=== PATIENT | male | born 1955 | race Caucasian/White ===

== ENCOUNTER 2016-09-18 14:27 | Observation (INO) | payer OTHER, MEDICARE ==
[~2016-09-18] VITALS: Ht 182.9 cm; Wt 85.0 kg
[2016-09-18] VITALS (7 sets, daily range): BP systolic 122–189; BP diastolic 74–87; PULSE 54–75; RESP 18–20; TEMP 97.6–97.9; O2SAT 97–100
[~2016-09-18 14:27] MED LIST: ASPI81; ATEN1TAB73; GLUCTAB; LANO0.2510; MS C15TA7; MS C30TA5; ZOCO40TA
[2016-09-18] MEDS ORDERED: SODIUM CHLORIDE 0.9% FLUSH 5 ML FLUSH IVF PRN ×2 (15:30→18:30)
--- NOTE | 2016-09-18 15:31 | PD ---
HPI Chief Complaint: Chest Pain Time Seen by Provider: 15:30 Travel History International Travel<30 days: No Contact w/Intl Traveler<30days: No Traveled to known affect area: No History of Present Illness HPI 61-year-old male with a history of hypertension, hyperlipidemia, CAD, CABG 5, chronic low back pain presents to the emergency department for evaluation of left anterior chest pain. The patient states that he has had left anterior chest pain for the past 5 weeks. States that it has been worsening and becoming more constant. States that the pain is aggravated with exertion. Denies any alleviating factors. He does state that he has some shortness of breath and diaphoresis when the pain is at its worst. He also endorses some epigastric pain and increased belching over the past 5 weeks, has never had an endoscopy. Patient states that he has had 2 heart attacks, his first heart attack was in 2010 and resulted in his CABG and his second heart attack was in June 2016 where he had a catheterization and 2 stents placed. Patient states that his most recent cardiac catheterization and hospitalizations have been over at [facility] which is where he lives. States that he came to our hospital today because the last time he was seen at [facility] he did not think he should've gone home. The patient is also reporting a history of severe allergic reactions to chemicals and states that he wears oxygen and a mask to help with these symptoms, states that he does not have to wear the oxygen or mask when he is at home. He admits to smoking cigarettes for about 40+ years. Denies any fever, chills, nausea, vomiting, abdominal pain, diarrhea constipation. PFSH Past Medical History Cardiovascular Problems: Yes High Cholesterol: Yes Hypertension: Yes Respiratory: Yes Social History Tobacco Use: Yes Allergies-Medications (Allergen,Severity, Reaction): Coded Allergies: Aspirin (Verified Allergy, Severe, 09/18/16) Methylparaben (Verified Allergy, Mild, 03/11/07) Reported Meds & Prescriptions Reported Meds & Active Scripts Active Reported Nitrostat SL (Nitroglycerin) 0.4 Mg Subl 0.4 Mg SL DIRECTED PRN 1 tablet under the tongue as needed for chest pain. Repeat every 5 minutes for a total of 3 DOSES or call 911 if NO relief. Metoprolol Tartrate 25 Mg Tab 25 Mg PO BID Lisinopril 2.5 Mg Tab 2.5 Mg PO DAILY Lactobacillus Acidophilus 1 Tab Tab 1 Tab PO DAILY Dilaudid (Hydromorphone HCl) 8 Mg Tab 8 Mg PO Q4HR PRN Glipizide 5 Mg Tab 5 Mg PO DAILY Take 30 minutes before a meal Clopidogrel (Clopidogrel Bisulfate) 75 Mg Tab 75 Mg PO DAILY Atenolol 25 Mg Tab 12.5 Mg PO DAILY IN THE PM Atenolol 25 Mg Tab 25 Mg PO DAILY IN THE AM Review of Systems Except as stated in HPI: all other systems reviewed are Neg Physical Exam Narrative GENERAL: Well-nourished and well-developed pleasant male patient in no acute distress. SKIN: Warm and dry. HEAD: Normocephalic and atraumatic. EYES: No injection, drainage, or hyphema noted. PERRLA. EOMI. ENT: No nasal drainage noted. Oropharynx is clear. NECK: Supple and the trachea is midline. CARDIOVASCULAR: Regular rate and rhythm. RESPIRATORY: Breath sounds are equal bilaterally with no accessory muscle use, wheezing, rhonchi, or crackles. GASTROINTESTINAL: Abdomen is soft, non-tender, and nondistended. MUSCULOSKELETAL: No obvious deformities, swelling, cyanosis, or ecchymosis is present throughout the upper and lower extremities. Patient has full range of motion without any signs of neurovascular compromise. NEUROLOGICAL: Awake, alert, and oriented. Normal speech and gait. Cranial nerves are grossly intact. Data Data Last Documented VS Vital Signs Date Time Temp Pulse Resp B/P Pulse Ox O2 Delivery O2 Flow Rate FiO2 09/18/16 17:04 57 18 144/79 100 Nasal Cannula 5 09/18/16 14:30 97.9 Orders Electrocardiogram (09/18/16 ) B-Type Natriuretic Peptide (09/18/16 15:24) Ckmb (Isoenzyme) Profile (09/18/16 15:24) Complete Blood Count With Diff (09/18/16 15:24) Comprehensive Metabolic Panel (09/18/16 15:24) Magnesium (Mg) (09/18/16 15:24) Prothrombin Time / Inr (Pt) (09/18/16 15:24) Act Partial Throm Time (Ptt) (09/18/16 15:24) Troponin I (09/18/16 15:24) Chest, Single Ap (09/18/16 15:24) Ecg Monitoring (09/18/16 15:24) Iv Access Insert/Monitor (09/18/16 15:24) Oximetry (09/18/16 15:24) Oxygen Administration (09/18/16 15:24) Sodium Chloride 0.9% Flush (Ns Flush) (09/18/16 15:30) Aspirin (Aspirin) (09/18/16 17:00) Admit Order (Ed Use Only) (09/18/16 18:23) Labs Laboratory Tests Test 09/18/16 15:44 White Blood Count 12.7 TH/MM3 Red Blood Count 4.67 MIL/MM3 Hemoglobin 13.8 GM/DL Hematocrit 40.0 % Mean Corpuscular Volume 85.7 FL Mean Corpuscular Hemoglobin 29.6 PG Mean Corpuscular Hemoglobin 34.6 % Concent Red Cell Distribution Width 14.7 % Platelet Count 159 TH/MM3 Mean Platelet Volume 10.4 FL Neutrophils (%) (Auto) 80.4 % Lymphocytes (%) (Auto) 13.4 % Monocytes (%) (Auto) 5.4 % Eosinophils (%) (Auto) 0.4 % Basophils (%) (Auto) 0.4 % Neutrophils # (Auto) 10.2 TH/MM3 Lymphocytes # (Auto) 1.7 TH/MM3 Monocytes # (Auto) 0.7 TH/MM3 Eosinophils # (Auto) 0.1 TH/MM3 Basophils # (Auto) 0.1 TH/MM3 CBC Comment DIFF FINAL Differential Comment Prothrombin Time 10.6 SEC Prothromb Time International 1.0 RATIO Ratio Activated Partial 23.8 SEC Thromboplast Time Sodium Level 139 MEQ/L Potassium Level 5.1 MEQ/L Chloride Level 104 MEQ/L Carbon Dioxide Level 32.9 MEQ/L Anion Gap 2 MEQ/L Blood Urea Nitrogen 10 MG/DL Creatinine 1.26 MG/DL Estimat Glomerular Filtration 58 ML/MIN Rate Random Glucose 152 MG/DL Calcium Level 10.3 MG/DL Magnesium Level 2.1 MG/DL Total Bilirubin 0.5 MG/DL Aspartate Amino Transf 17 U/L (AST/SGOT) Alanine Aminotransferase 39 U/L (ALT/SGPT) Alkaline Phosphatase 65 U/L Total Creatine Kinase 48 U/L Troponin I LESS THAN 0.02 NG/ML B-Type Natriuretic Peptide 83 PG/ML Total Protein 7.8 GM/DL Albumin 4.1 GM/DL MDM Medical Decision Making Medical Screen Exam Complete: Yes Emergency Medical Condition: Yes Differential Diagnosis Angina versus ACS versus pleurisy versus gastritis versus reflux Narrative Course 61-year-old male presents to the emergency department for evaluation of left- sided chest pain, epigastric pain, shortness of breath for 5 weeks. Patient is afebrile, vital signs are stable. Physical examination is unremarkable. Patient not administered aspirin because he reports he is allergic. He did take Plavix this morning. Labs been drawn and sent. Chest x-ray shows minimal blunting of the left costophrenic sulcus indicating small effusion versus scarring. No acute cardiopulmonary disease identified. CBC shows a minimally elevated white count of 12.7, otherwise unremarkable. CMP is unremarkable for any acute abnormalities. Troponin is less than 0.02. BNP is 83. Coags are unremarkable. Patient has remained stable and without complaint while here in the emergency department. Will admit patient to chest pain center for repeat cardiac enzymes and EKGs. I discussed the case with my attending physician Dr. Bower who is aware of the patients history, physical examination findings, and treatment plan. Diagnosis Primary Impression: Chest pain Qualified Code: R07.9 - Chest pain, unspecified type Admitting Information Admitting Physician Requests: Observation Sadie Marina Sep 18, 2016 15:30
[2016-09-18] MEDS ORDERED: DILA8TAB4 PO (15:36)
[2016-09-18] MEDS ORDERED: METO25TA3 PO (15:36)
[2016-09-18] MEDS ORDERED: NITR0.4S SL (15:36)
[2016-09-18] MEDS ORDERED: LISI2.5T3 PO (15:36)
[2016-09-18] MEDS ORDERED: CLOP75TA PO (15:36)
[2016-09-18] MEDS ORDERED: GLIP5TAB8 PO (15:36)
[2016-09-18] MEDS ORDERED: LACTTAB8 PO (15:36)
[2016-09-18] MEDS ORDERED: ATEN25TA PO ×2 (15:36)
--- NOTE | 2016-09-18 16:27 | RADRPT ---
EXAM DATE/TIME: 09/18/2016 15:38 [facility] COMPARISON: No previous studies available for comparison. INDICATIONS : Chest pain. MEDICAL HISTORY : Congestive heart failure. SURGICAL HISTORY : CABG. ENCOUNTER: Initial ACUITY: 2 days PAIN SCORE: 5/10 LOCATION: Bilateral chest FINDINGS: Single AP view of the chest. Median sternotomy wires. The lungs are clear. Cardiomediastinal silhouet te within normal limits. No evidence of pneumothorax. Mild blunting left costophrenic sulcus indicati ng small pleural effusion or scarring. CONCLUSION: 1. Minimal blunting of the left costophrenic sulcus indicating small effusion versus scarring. 2. No acute cardiopulmonary disease identified. Neno Gutiérrez MD on September 18, 2016 at 16:23 Board Certified Radiologist. This report was verified electronically.
[2016-09-18 16:29] LABS: APTT (PATIENT) 23.8 SEC (24.3-30.1); PROTHROMBIN TIME - PATIENT 10.6 SEC (9.8-11.6)
[2016-09-18 16:48] LABS: ALT (GPT) 39 U/L (12-78); ANION GAP 2 MEQ/L (5-15); AST (GOT) 17 U/L (15-37); BICARBONATE 32.9 MEQ/L (21.0-32.0); BLOOD UREA NITROGEN 10 MG/DL (7-18); CHLORIDE 104 MEQ/L (98-107); GLOMERULAR FILTRATION RATE 58 ML/MIN (>89); MAGNESIUM 2.1 MG/DL (1.5-2.5); POTASSIUM 5.1 MEQ/L (3.5-5.1); SODIUM (NA) 139 MEQ/L (136-145)
[2016-09-18 16:51] LABS: ALKALINE PHOSPHATASE 65 U/L (45-117); TOTAL BILIRUBIN ADULT 0.5 MG/DL (0.2-1.0)
[2016-09-18] MEDS ORDERED: ASPIRIN 325 MG TAB PO ONE ×2 (17:00→19:15)
[2016-09-18 17:23] LABS: CREATINE KINASE 48 U/L (39-308)
[2016-09-18 17:36] LABS: AUTOMATED NEUTROPHIL # 10.2 TH/MM3 (1.8-7.7); BASOPHIL # 0.1 TH/MM3 (0-0.2); BASOPHIL % 0.4 % (0.0-2.0); EOSINOPHIL # 0.1 TH/MM3 (0-0.4); EOSINOPHIL % 0.4 % (0.0-4.0); HEMO FLAGS DIFF FINAL; LYMPH % 13.4 % (9.0-44.0); LYMPHOCYTE # 1.7 TH/MM3 (1.0-4.8); MEAN CELL VOLUME 85.7 FL (80.0-100.0); MEAN CORPUSCULAR HEMOGLOBIN 29.6 PG (27.0-34.0); MEAN CORPUSCULAR HGB CONC 34.6 % (32.0-36.0); MONO % 5.4 % (0.0-8.0); NEUT % 80.4 % (16.0-70.0); PLATELET COUNT 159 TH/MM3 (150-450); RED BLOOD COUNT 4.67 MIL/MM3 (4.50-5.90); RED CELL DISTRIBUTION WIDTH 14.7 % (11.6-17.2); WHITE BLOOD COUNT 12.7 TH/MM3 (4.0-11.0)
[2016-09-18] MEDS ORDERED: ONDANSETRON HCL 4 MG/2 ML VIAL IV PRN (18:30)
[2016-09-18] MEDS ORDERED: NITROGLYCERIN 0.4 MG SL 25 TABS/BTL SL PRN (18:30)
[2016-09-18] MEDS ORDERED: ACETAMINOPHEN 500 MG CPLT PO PRN (18:30)
[2016-09-18] MEDS ORDERED: DEXTROSE 50% IN WATER 50 ML VIAL(D50) IV PUSH PRN (19:30)
[2016-09-18] MEDS ORDERED: RESP: ALBUTEROL 2.5 MG/3 ML NEB (PRN) NEB (19:30)
[2016-09-18] MEDS ORDERED: GLUCAGON 1 MG/ML VIAL OTHER PRN (19:30)
[2016-09-18 19:51] LABS: CREATINE KINASE 39 U/L (39-308)
[2016-09-18] MEDS ORDERED: ATENOLOL 25 MG TAB PO SCH (21:00)
[2016-09-18] MEDS: INSULIN ASPART SUPPLEMENTAL SCALE SQ SCH (21:00)
[2016-09-18] MEDS: SODIUM CHLORIDE 0.9% FLUSH 5 ML FLUSH IVF SCH (21:15)
[2016-09-18] MEDS: PANTOPRAZOLE SOD 40 MG DELAYED RELEASE TAB PO SCH (21:16)
[2016-09-18] MEDS: HYDROmorphone HCL 4 MG TAB PO PRN (21:18)
[2016-09-18 22:59] LABS: CREATINE KINASE 43 U/L (39-308)
[2016-09-19] VITALS (7 sets, daily range): BP systolic 127–143; BP diastolic 71–73; PULSE 50–65; RESP 18–20; TEMP 96.5–98.3; O2SAT 98–100
[2016-09-19] MEDS: INSULIN ASPART SUPPLEMENTAL SCALE SQ SCH ×2 (06:11→11:00)
[2016-09-19] MEDS ORDERED: ATENOLOL 25 MG TAB PO SCH (09:00)
[2016-09-19] MEDS: SODIUM CHLORIDE 0.9% FLUSH 5 ML FLUSH IVF SCH (09:00)
[2016-09-19] MEDS ORDERED: CLOPIDOGREL 75 MG TAB PO SCH (09:00)
[2016-09-19] MEDS: PANTOPRAZOLE SOD 40 MG DELAYED RELEASE TAB PO SCH (10:15)
--- NOTE | 2016-09-19 11:45 | EKG ---
Date Performed: 09/18/2016 Time Performed: 15:25:45 PTAGE: 61 years EKG: Sinus rhythm POOR PRECORDIAL R-WAVE PROGRESSION BORDERLINE ECG PREVIOUS TRACING : 03/11/2007 11.41 DOCTOR: Rayo Gamez Interpretating Date/Time 09/19/2016 11:43:54
--- NOTE | 2016-09-19 11:57 | EKG ---
Date Performed: 09/18/2016 Time Performed: 18:37:30 PTAGE: 61 years EKG: SINUS BRADYCARDIA POOR PRECORDIAL R-WAVE PROGRESSION BORDERLINE ECG PREVIOUS TRACING : 09/18/2016 15.25 DOCTOR: Rayo Gamez Interpretating Date/Time 09/19/2016 11:55:57
--- NOTE | 2016-09-19 11:59 | EKG ---
Date Performed: 09/18/2016 Time Performed: 22:18:43 PTAGE: 61 years EKG: Sinus rhythm INCOMPLETE RIGHT BUNDLE BRANCH BLOCK POOR PRECORDIAL R-WAVE PROGRESSION BORDERLINE ECG PREVIOUS TRACING : 09/18/2016 18.37 DOCTOR: Rayo Gamez Interpretating Date/Time 09/19/2016 11:58:32
[2016-09-19 12:18] LABS: AMPHETAMINE, URINE NEG (NEG); BARBITURATES, URINE NEG (NEG); COCAINE, URINE NEG (NEG)
[2016-09-19] MEDS: HYDROmorphone HCL 4 MG TAB PO PRN (12:44)
[2016-09-19] MEDS ORDERED: PROT40TA PO (16:26)
[2016-09-19] MEDS ORDERED: METF500T PO (16:26)
--- NOTE | 2016-09-19 16:28 | HHI.DCPOC ---
Discharge Care Plan Diagnosis: (1) Chest pain (2) CAD (coronary artery disease) (3) Hx of CABG (4) H/O heart artery stent (5) Tobacco abuse (6) Hypertension Goals to Promote Your Health * To prevent worsening of your condition and complications * To maintain your health at the optimal level Directions to Meet Your Goals Take your medications as prescribed Follow your dietary instruction Follow activity as directed Keep your appointments as scheduled Take your immunizations and boosters as scheduled If your symptoms worsen call your PCP, if no PCP go to Urgent Care Center or Emergency Room Smoking is Dangerous to Your Health. Avoid second hand smoke Call the 24-hour hour crisis hotline for domestic abuse at René Gordon Sep 19, 2016 16:28
[2016-09-19] MEDS ORDERED: IOHEXOL 350 MG/ML 10 ML VIAL (for RAD DIAG) IV ONE (16:49)
--- NOTE | 2016-09-19 17:23 | RADRPT ---
EXAM DATE/TIME: 09/19/2016 16:41 [facility] COMPARISON: No previous studies available for comparison. INDICATIONS : Right sided chest pain with shorttness of breath. Elevated D-Dimer. IV CONTRAST: 65 cc Omnipaque 350 (iohexol) IV RADIATION DOSE: 23.43 CTDIvol (mGy) MEDICAL HISTORY : Cardiovascular disease. Hypertension. SURGICAL HISTORY : CABG ENCOUNTER: Initial ACUITY: 1 month PAIN SCALE: 4/10 LOCATION: Right chest TECHNIQUE: Volumetric scanning of the chest was performed using a pulmonary embolism protocol MIP images were re constructed. Using automated exposure control and adjustment of the mA and/or kV according to patien t size, radiation dose was kept as low as reasonably achievable to obtain optimal diagnostic quality images. FINDINGS: No filling defects identified to suggest pulmonary embolic disease. There is chronic left basilar ple ural thickening and calcification with some dependent atelectasis. Moderate coronary calcifications, status post CABG. No acute findings in the upper abdomen. CONCLUSION: 1. Negative for pulmonary embolic disease. Chronic left basilar pleural thickening and calcification. Tristin Wagner MD on September 19, 2016 at 17:19 Board Certified Radiologist. This report was verified electronically.
[2016-09-20 10:07] LABS: HEMOGLOBIN Ao 84.6 %; HEMOGLOBIN LA1C 1.7 %; HEMOGLOBIN P3 3.4 %
--- NOTE | 2016-09-22 08:40 | MH ---
cc: LETICIA GAMEZ DATE OF ADMISSION: 09/18/2016 DATE OF : 1955 CHIEF COMPLAINT Chest pain. HISTORY OF PRESENT ILLNESS This is a 61-year-old patient with known coronary artery disease, hypertension, hyperlipidemia, two cardiac stents placed in June of 2016 and CABG x5 in 2000, presents to the emergency room with left anterior chest discomfort. Onset was approximately five weeks ago after he was discharged from [facility] for evaluation of chest pain and abdominal discomfort. States he was discharged prematurely and for the past five weeks he has been recovering on his own by living on papayas, mash potatoes, Boost and cigarettes. States over the past five weeks he developed left anterior chest pressure that is severe rated a "12/10" that radiates to both arms. Occasionally he will also develop sharp pain. This pain has been constant for the past five weeks. Bending over makes the pain worse. No known relieving factors although sometimes he takes Tums and this helps with the gas. He believes that his stomach and chest pain are related. He has never had an endoscopy. He did have a colonoscopy at age 49 which was unremarkable and he has not followed with a GI physician since. He does have a primary care physician, Dr. Lockhart. He has not followed up with Dr. Lockhart since his discharge, and his new phlebotomy specialist will be Dr. Worrell and he has not seen him since discharge. PAST MEDICAL HISTORY 1. Hypertension. 2. Hyperlipidemia. 3. Gallstones. 4. Coronary artery disease. 5. Chronic neck and back pain. 6. Arthritis. PAST SURGICAL HISTORY 1. He had two stents placed in June of 2016. 2. CABG x5 in 2000. The patient states his surgery was completed here at [place]. SOCIAL HISTORY He is retired, is a . He smokes one pack of cigarettes daily. Denies any alcohol or illicit drug use. Does have diabetes, hypertension and hyperlipidemia. He has not seen Dr. Worrell recently and his past cardiac catheterization he believes was July 05, 2016 and two stents were placed at that time. ALLERGIES HE IS ALLERGIC TO ASPIRIN AND METHYLPARABEN. ALSO REPORTS "MULTIPLE CHEMICAL ALLERGIES". MEDICATIONS Medications were reviewed with patient's med list and include - 1. Dilaudid 8 mg q.4 hours p.r.n. The patient states he takes this on a regular basis. 2. Glipizide 5 mg daily. The patient states at times he takes a quarter or a [id number] as he is known to "bottom out". 3. Plavix 75 mg as ordered. He is taking a xjwj-[id number] in the morning and a pbky-c-duhytr in the evening. 4. He is no longer taking lisinopril 2.5 mg daily, although this is ordered and on his most recent discharge summary from [facility]. 5. In regards to his atenolol, it is ordered 25 mg q.a.m. and atenolol 12.5 mg q.p.m., although he states he checks his heart rate and uses atenolol on a p.r.n. basis and will use Metoprolol 25 mg when his heart rate gets above 100. REVIEW OF SYSTEMS States he has been weak and fatigued and just has never improved since his discharge five weeks ago from [facility]. No known fevers or chills. HEENT: No headache. No dysphagia. CARDIOVASCULAR: As stated above. Has chronic lower leg pain. RESPIRATORY: Reports shortness of breath on occasion, although states it is difficult for him to know if this shortness of breath is from his multiple allergies or chest pain or his abdominal discomfort. He has no cough, upper respiratory infection, wheeze. The patient has O2 tank that is his personal O2 tank at bedside and states he uses O2 at 5 liters as needed which he administers orally due to severe chemical allergies. He also has to wear a mask while in the hospital and/or grocery store with his oxygen. ABDOMEN: States he is only able to eat a bland diet which consists of melon, mash potatoes and an Ensure. Has constipation and endorse using a Fleet enema every three days. Last bowel movement was this morning. No blood or dark stool. GENITOURINARY: No dysuria or hematuria. EXTREMITIES: No lower leg edema. Reports chronic bilateral severe neuropathy. MUSCULOSKELETAL: No change in ROM. NEUROLOGIC: No difficulty with balance, motory or sensory deficits, change in memory. PHYSICAL EXAMINATION VITAL SIGNS: Temperature 97.9, pulse 75, respiratory 20, and blood pressure 189/87, most recent blood pressure 130/75, and he is 97% on O2 at 2 liters. The patient does titrate his oxygen up to 5 liters although this is not for shortness of breath. He states it is for his throat. GENERAL: He is alert, well-nourished, well-developed, male who is in no acute distress. HEENT: Head normocephalic, atraumatic. Eyes: Sclerae are clear. Pupils are equal and round. Conjunctivae are without injection. ENT: Mucous membranes are pink and moist. NECK: Neck is supple. Trachea is midline. There are no masses. CARDIOVASCULAR: Regular rate and rhythm without murmur, rub or gallop. No JVD. S1, S2. No S3 or S4. RESPIRATORY: Clear lungs throughout bilaterally with no crackles, wheeze or rhonchi. He is nonlabored. Speaking in full sentences. Able to carry on a conversation. There is no use of accessory muscle use. Symmetrical chest rise. Throughout assessment he will place the nasal canula on his head or in his mouth frequently. ABDOMEN: Abdomen is soft, nontender, nondistended. No masses. Positive bowel tones. EXTREMITIES: Pulses +1 x4. No dependent edema. MUSCULOSKELETAL: Normal tone x4. Nontender. No obvious deformities. NEUROLOGIC: CN II through XII are grossly intact. Motor strength is 5/5. PSYCHIATRIC: He is alert and oriented x3. He is anxious. Has flight of ideas. Appears to have appropriate insight and judgment. SKIN: No rashes. Normal turgor. Normal texture. There are no lesions. Skin is warm and dry. LABORATORY DATA CBC has a WBC of 12.7, neutrophil percentage of 80.4, otherwise unremarkable. Chemistry has a carbon dioxide of 32.9, estimated GFR 58, random glucose 152, calcium 10.3, otherwise unremarkable. First set of cardiac enzymes are negative, second set is pending. Coagulation is unremarkable. A D-dimmer has been ordered and is pending. IMAGING Chest x-ray has a conclusion of: 1) Minimal blunting of the left costophrenic sulcus indicating a small effusion versus scarring. 2) No acute cardiopulmonary disease is identified. Two EKGs show normal sinus bradycardic rhythm with no ST or T segment changes and a normal axis. ASSESSMENT AND PLAN 1. Chest pain: The patient has been admitted to the Chest Pain Center as he is concerned regarding his left anterior chest pain since his stents placement. He will be ruled out with three sets of EKGs, cardiac enzymes and will be monitored overnight. A medical release form will be obtained in hopes of reading [facility]'s record of most recent cardiac catheterization and intervention and recommendation. He will be seen and evaluated by Dr. Leticia Gamez in the a.m. This has been discussed with the patient and he is agreeable to this plan of care. 2. In regards to his compliance with his medications, he has been strongly encouraged and stressed the importance of taking the medications as they are prescribed and especially in regards to his atenolol. Also encouraged him to keep contact with his primary care provider Dr. Lockhart with his concern of low blood sugars on glipizide although he is only taking a quarter tablet. He has been instructed to take his Plavix 75 mg daily and not a oevg-n-fyfwll and take twice daily. 3. Tobacco use. He has been strongly encouraged and instructed the importance of tobacco cessation. Discussed and counseled the patient to quit smoking. 4. Constipation. Discussed with the patient in length that it would be advisable for him to follow back with Dr. Awad for a repeat colonoscopy and possibly an EGD. He is agreeable to this plan of care. Further disposition to follow, labs and being assessed by chest pain physician. Dictated by: REY Potts MD PARTHA Wiley/AUDREY /7:11 PM /8:40 AM
== END 2016-09-19 18:15 | disposition home or self-care (01) ==
LOC: NEPC 14:27 → NEDA 18:24 → NEPHCDU 20:50
PROVIDERS: ADMIT Internal Medicine Cardiovascular Disease; ATTEND Internal Medicine Cardiovascular Disease
DX: R07.89 Other chest pain (principal); I25.10 Atherosclerotic heart disease of native coronary artery without angina pectoris; I10 Essential (primary) hypertension; E11.9 Type 2 diabetes mellitus without complications; E78.5 Hyperlipidemia, unspecified; E78.00 Pure hypercholesterolemia, unspecified; R94.31 Abnormal electrocardiogram [ECG] [EKG]; I25.2 Old myocardial infarction; K59.00 Constipation, unspecified; F17.210 Nicotine dependence, cigarettes, uncomplicated; Z95.1 Presence of aortocoronary bypass graft; Z95.5 Presence of coronary angioplasty implant and graft; Z79.02 Long term (current) use of antithrombotics/antiplatelets; Z79.84 Long term (current) use of oral hypoglycemic drugs
CPT/HCPCS: 71010; 71275; 80053; 80307; 82550; 82948; 83036; 83735; 83880; 84443; 84484; 85025; 85379; 85610; 85730; 93005; 99285; G0378; Q9967